=== PATIENT | female | born 1935 | race Caucasian/White ===

== ENCOUNTER 2016-12-28 06:17 | Day surgery (SDC) | payer MEDICARE ==
[2016-12-27 16:45] VITALS: BMI 34.3
[~2016-12-28 06:17] MED LIST: Cyclopentolate 1% Opth Drop 2 ML BOT FS SCH; Fluorouracil 100 MG, Enoxaparin Sodium 25 MG, EPINEPHrine 0.3 MG in Ophthalmic Irrigati... IVPB SCH; Phenylephrine HCl 2.5% Ophth Soln 5 ML BOT FS SCH
[2016-12-28] MEDS ORDERED: Fentanyl 100 MCG/2 ML VIAL ONE (06:30)
[2016-12-28] MEDS ORDERED: Midazolam HCl 2 mg/2 ml Vial ONE (06:30)
[2016-12-28] MEDS ORDERED: Diprivan 20 ML ONE (06:30)
[2016-12-28] MEDS ORDERED: Phenylephrine HCl 2.5% Ophth Soln 5 ML BOT ONE (06:47)
[2016-12-28] MEDS ORDERED: Cyclopentolate 1% Opth Drop 2 ML BOT ONE (06:47)
[2016-12-28] MEDS ORDERED: Propofol 200 MG/20 ML VIAL ONE (07:30)
[2016-12-28] MEDS ORDERED: Lidocaine 2% PF 10 ML AMP (For Epidural Use) ONE (07:30)
--- NOTE | 2016-12-28 09:26 | OP ---
DATE OF PROCEDURE: 12/28/2016 PREOPERATIVE DIAGNOSIS: Rhegmatogenous retinal detachment, right eye. POSTOPERATIVE DIAGNOSIS: Rhegmatogenous retinal detachment, right eye. PROCEDURE: Pars plana vitrectomy and retinal detachment repair, right eye. SURGEON: Dr. Soy Llanes ANESTHESIA: Local with monitored anesthesia care. COMPLICATIONS: None. PROCEDURE IN DETAIL: The patient was identified in the preoperative holding area. Appropriate infor med consent for the planned surgical procedure on the right eye had been obtained. The patient was t ransported to the operative suite where appropriate cardiopulmonary monitoring was established. Loca l anesthesia was obtained using retrobulbar and modified Van Lint lid block using 50/50 mixture of 4% lidocaine and 0.75% bupivacaine. The patient was prepped and draped in the usual sterile manner for ophthalmic surgery on right eye. Lid speculum was placed in the right eye. The 25-gauge trocars we re placed in conjunctiva and sclera supratemporally, inferotemporally, and supranasally. Infusion li ne was placed inferotemporally. Light pipe and vitreous cutter were inserted into the eye. Core of vitrectomy was performed. Attention was turned to the tear at 8:30. Vitreous was carefully trimmed from the tear. Posterior drain retinotomy was created along the 8 o'clock meridian post complete air fluid exchange was performed with 10 minutes being allowed for fluid to drain posteriorly. A 360 la ser was placed, the endolaser delivery device. Fifteen percent perfluoropropane gas was infused into the eye. Trocars were removed and eye was noted to retain pressure well. Retrobulbar Kenalog and s ubconjunctival Ancef were placed. Atropine and antibiotic ointment were placed, and the eye was patc hed and shielded. The patient was taken to the postoperative recovery unit in good condition suffere d no immediate perioperative complications. DISCHARGE INSTRUCTIONS: The patient was instructed to keep patch and shield on, avoid lifting or diann ding, and follow up in the morning with Dr. Llanes.
== END 2016-12-28 09:25 | disposition home or self-care (01) ==
LOC: SDC 06:17
PROVIDERS: ATTEND Ophthalmology Retina Specialist
PROC: 3E0C3GC Introduction of Other Therapeutic Substance into Eye, Percutaneous Approach (ICD-10-PCS; principal; 2016-12-28)
DX: H33.001 Unspecified retinal detachment with retinal break, right eye (principal); Z88.0 Allergy status to penicillin
CPT/HCPCS: 67025; J0171; J1650; J2001; J2250; J2704; J3010; J9190